=== PATIENT | male | born 1950 | race Caucasian/White ===

== ENCOUNTER 2018-09-04 11:49 | Observation (INO) ==
--- NOTE | 2018-09-04 12:48 | ED ---
HPI General Chief Complaint: Chest Pain Stated Complaint: Cardiac Complaint Time Seen by Provider: 09/04/18 12:27 Source: patient Mode of arrival: ambulatory Limitations: no limitations History of Present Illness HPI narrative: 68 male complains of chest pain. Patient states that he was having episodes of lightheadedness last year. Patient was seen by his human services professional in [place] and had stress test and Holter monitor done which were normal. Patient states that he has intermittent lightheadedness for the past few months. Patient started having substernal sharp pain for the past 3 weeks. Patient states that the pain localized to the substernal area and sharp pain usually last about 3-4 minutes and resolved completely. Patient states that the pain is not associate with exertion. Patient complains of aching pain and sharp pain to left shoulder at the same time with a chest pain. Patient states the left shoulder pain resolved when the chest pain resolved. Patient denies any palpitation nausea diaphoresis. Patient states that he has increasing frequency of the chest pain for the past 2 days. Patient states that he had 3-4 episodes of chest pain yesterday and 3-4 chest pain episodes this morning. Patient denies any coughing congestion fever chills. Patient denies history hypertension, diabetes, hyperlipidemia. Patient is a non- smoker. Patient has history of prostate cancer bladder cancer status post BCG and thermal surgery. complaint: Reports chest pain STEMI Alert: No Onset (ago): day(s) Duration: intermittent Onset: during rest Pain location: Reports substernal Severity: moderate Severity scale (1-10): 5 Quality: Reports sharp Pain radiation: Reports none Relieving factors: nothing Exacerbating factors: nothing Treatments prior to arrival chest pain: Reports none and aspirin Related Data Allergies Allergy/AdvReac Type Severity Reaction Status Date / Time No Known Allergies Allergy Verified 09/04/18 11:55 Review of Systems ROS: all other systems reviewed are negative [facility] Medical History Medical History Bladder cancer (Acute) Blood clot in vein (Acute) Prostate cancer (Acute) Surgical History Surgical History H/O knee surgery (Acute) Social History Social History Smoking Status: Never smoker How Often Do You Have a Drink Containing Alcohol: Monthly or less Recent Travel in [facility] within the Last 8 Weeks: No Recent Out of Country Travel within the Last 8 Weeks: No Immunization History Tetanus Immunization: Unsure Exam Narrative Exam Narrative: GENERAL: Well-nourished, well-developed patient. SKIN: Focused skin assessment warm/dry. HEAD: Normocephalic. EYES: No scleral icterus. No injection or drainage. NECK: Supple, trachea midline. No JVD or lymphadenopathy. CARDIOVASCULAR: Regular rate and rhythm without murmurs, gallops, or rubs. RESPIRATORY: Breath sounds equal bilaterally. No accessory muscle use. GASTROINTESTINAL: Abdomen soft, non-tender, nondistended. MUSCULOSKELETAL: No cyanosis, or edema. BACK: Nontender without obvious deformity. No CVA tenderness. Neurologic exam normal. Course Initial Documented Vital Signs Temperature 98.2 F 09/04/18 11:53 Pulse Rate 83 09/04/18 11:53 Respiratory Rate 20 09/04/18 11:53 Blood Pressure 193/89 H 09/04/18 11:53 Pulse Oximetry 99 09/04/18 11:53 Last Documented Vital Signs Temperature 98.2 F 09/04/18 11:53 Pulse Rate 70 09/04/18 12:41 Respiratory Rate 16 09/04/18 12:10 Blood Pressure 169/89 H 09/04/18 12:10 Pulse Oximetry 98 09/04/18 12:41 Medical Decision Making MDM Narrative Medical decision making narrative: 68-year-old male plans intermittent chest pain. Medical Screen Exam Complete: Yes Emergency Medical Condition: Yes Differential Diagnosis Differential Diagnosis: Differential diagnosis including musculoskeletal, angina , AK, PE, pneumothorax. Lab Data Lab results reviewed: Yes I reviewed the patient's lab results. Result diagrams: 09/04/18 13:30 09/04/18 12:48 Lab Results 09/04/18 09/04/18 09/04/18 Range/Units 12:48 12:48 12:48 WBC (4.0-11.0) th/mm3 RBC (4.50-5.90) mil/mm3 Hgb (13.0-17.0) gm/dL Hct (39.0-51.0) % MCV (80.0-100.0) fL MCH (27.0-34.0) pg MCHC (32.0-36.0) % RDW (11.6-17.2) % Plt Count (150-450) th/mm3 MPV (7.0-11.0) fL Neut % (Auto) (16.0-70.0) % Lymph % (Auto) (9.0-44.0) % Lake % (Auto) (0.0-8.0) % Eos % (Auto) (0.0-4.0) % Baso % (Auto) (0.0-2.0) % Neut # (Auto) (1.8-7.7) th/mm3 Lymph # (Auto) (1.0-4.8) th/mm3 [place] # (Auto) (0.0-0.9) th/mm3 Eos # (Auto) (0.0-0.4) th/mm3 Baso # (Auto) (0.0-0.2) th/mm3 WBC Differential Differential Comment PT 10.1 (9.8-11.6) sec INR 1.0 Ratio APTT 25.7 (23.4-31.7) sec D-Dimer Quant (PE/DVT) 0.65 H (0.00-0.50) mg/L FEU Sodium Cancelled 140 Potassium Cancelled 4.8 Chloride Cancelled 106 Carbon Dioxide Cancelled 27.1 Anion Gap Cancelled 7 BUN Cancelled 20 H Creatinine Cancelled 0.98 Estimated GFR Cancelled 76 L Random Glucose Cancelled 100 Calcium Cancelled 8.5 Calcium Adj for Albumin Cancelled Total Bilirubin Cancelled 0.4 AST Cancelled 40 H ALT Cancelled 21 Alkaline Phosphatase Cancelled 83 Total Creatine Kinase 150 (39-308) U/L CK-MB (CK-2) 2.2 (0.5-3.6) ng/mL Troponin I Less than 0.02 L (0.02-0.05) ng/mL Total Protein Cancelled 7.5 Albumin Cancelled 3.6 09/04/18 Range/Units 13:30 WBC 9.5 (4.0-11.0) th/mm3 RBC 4.97 (4.50-5.90) mil/mm3 Hgb 16.0 (13.0-17.0) gm/dL Hct 46.0 (39.0-51.0) % MCV 92.6 (80.0-100.0) fL MCH 32.1 (27.0-34.0) pg MCHC 34.7 (32.0-36.0) % RDW 13.1 (11.6-17.2) % Plt Count 189 (150-450) th/mm3 MPV 7.8 (7.0-11.0) fL Neut % (Auto) 72.3 H (16.0-70.0) % Lymph % (Auto) 17.6 (9.0-44.0) % [place] % (Auto) 8.0 (0.0-8.0) % Eos % (Auto) 1.8 (0.0-4.0) % Baso % (Auto) 0.3 (0.0-2.0) % Neut # (Auto) 6.9 (1.8-7.7) th/mm3 Lymph # (Auto) 1.7 (1.0-4.8) th/mm3 [place] # (Auto) 0.8 (0.0-0.9) th/mm3 Eos # (Auto) 0.2 (0.0-0.4) th/mm3 Baso # (Auto) 0.0 (0.0-0.2) th/mm3 WBC Differential . Differential Comment Auto diff final PT (9.8-11.6) sec INR Ratio APTT (23.4-31.7) sec D-Dimer Quant (PE/DVT) (0.00-0.50) mg/L FEU Sodium Potassium Chloride Carbon Dioxide Anion Gap BUN Creatinine Estimated GFR Random Glucose Calcium Calcium Adj for Albumin Total Bilirubin AST ALT Alkaline Phosphatase Total Creatine Kinase (39-308) U/L CK-MB (CK-2) (0.5-3.6) ng/mL Troponin I (0.02-0.05) ng/mL Total Protein Albumin Imaging Data Attestation: I personally reviewed and interpreted this imaging study as follows : Radiologist's impression: Chest X-Ray 09/04/18 12:41 CONCLUSION: The lungs are clear. Chest CTA 09/04/18 13:45 CONCLUSION: 1. No evidence of pulmonary embolism 2. No focal or acute pulmonary infiltrates. Discharge Plan Discharge Disposition Patient Disposition: ED Admit(ED Internal Use Only) Discharge Order Discharge Orders: ED Use Only Admit Order (Routine); Ordered 12/24/18 Ordered By: Win Flynn Discharge Details Diagnosis: Chest pain Physicians Team ED Provider: Win Flynn Discharge Instructions Patient Printed Instructions: Chest Pain (ED) Discharge Interventions Interventions: Vital Signs Last Done: 09/04/18 12:10 Status ED Status: Admitted Observation Patient
--- NOTE | 2018-09-04 13:16 | XR ---
EXAM DATE: 09/04/2018 1:14 PM EST AGE/SEX: 68 years / Male INDICATIONS: Chest pain today and several times over past three weeks, some vertigo and shortness of breath CLINICAL DATA: This is the patient's initial encounter. Patient reports that signs and symptoms have been present for 3 weeks and indicates a pain score of 9/10. MEDICAL/SURGICAL HISTORY: . low back pain, chronic None. COMPARISON: No prior exams available for comparison. FINDINGS: A single AP view of the chest demonstrates the lungs to be symmetrically aerated without evidence of mass, infiltrate or effusion. The cardiomediastinal contours are unremarkable. Osseous structures a re intact. CONCLUSION: The lungs are clear. Electronically signed by: Chace Graham MD Board Certified Radiologist 09/04/2018 1:15 PM EST
[2018-09-04 13:31] LABS: Activated Partial Thrombo Time 25.7 sec (23.4-31.7); Prothrombin Time 10.1 sec (9.8-11.6)
[2018-09-04 13:33] LABS: Alanine Aminotransferase 21 U/L (12-78)
[2018-09-04 13:36] LABS: D-Dimer 0.65 mg/L FEU (0.00-0.50)
[2018-09-04 13:38] LABS: Albumin 3.6 g/dL (3.4-5.0); Alkaline Phosphatase 83 U/L (45-117); Anion Gap 7 meq/L (5-15); Aspartate Aminotransferase 40 U/L (15-37); Blood Urea Nitrogen 20 mg/dL (7-18); Calcium 8.5 mg/dL (8.5-10.1); Carbon Dioxide 27.1 meq/L (21.0-32.0); Chloride 106 meq/L (98-107); Creatine Kinase 150 U/L (39-308); Glomerular Filtration Rate 76 mL/min (>89); Glucose,Random 100 mg/dL (74-106); Potassium 4.8 meq/L (3.5-5.1); Sodium 140 meq/L (136-145); Total Protein 7.5 g/dL (6.4-8.2)
[2018-09-04 13:48] LABS: Baso % (Auto) 0.3 % (0.0-2.0); Eos # (Auto) 0.2 th/mm3 (0.0-0.4); Eos % (Auto) 1.8 % (0.0-4.0); Lymph # (Auto) 1.7 th/mm3 (1.0-4.8); Lymph % (Auto) 17.6 % (9.0-44.0); Mean Corpuscular HGB Conc 34.7 % (32.0-36.0); Mean Corpuscular Hemoglobin 32.1 pg (27.0-34.0); Mean Corpuscular Volume 92.6 fL (80.0-100.0); Mean Platelet Volume 7.8 fL (7.0-11.0); Mono # (Auto) 0.8 th/mm3 (0.0-0.9); Neut # (Auto) 6.9 th/mm3 (1.8-7.7); Neut % (Auto) 72.3 % (16.0-70.0); Platelet Count 189 th/mm3 (150-450); Red Blood Count 4.97 mil/mm3 (4.50-5.90); Red Cell Distribution Width 13.1 % (11.6-17.2); White Blood Count 9.5 th/mm3 (4.0-11.0)
[2018-09-04 13:50] LABS: Creatine Kinase MB 2.2 ng/mL (0.5-3.6)
--- NOTE | 2018-09-04 14:36 | CT ---
EXAM DATE: 09/04/2018 2:31 PM EST AGE/SEX: 68 years / Male INDICATIONS: Mid sternal chest pain for several weeks, radiating to left shoulder CLINICAL DATA: This is the patient's initial encounter. Patient reports that signs and symptoms have been present for 2 weeks and indicates a pain score of 2/10. MEDICAL/SURGICAL HISTORY: Carcinoma, bladder. Carcinoma, prostatic. None. RADIATION DOSE: 12.57 CTDI (mGy) COMPARISON: No prior exams available for comparison. TECHNIQUE: Volumetric scanning was performed using a multi-row detector CT scanner during bolus infu teo of 74 ml Omnipaque 350 (iohexol) nonionic water-soluble contrast as a single exam dose. The nichole a was post processed with a variety of visualization algorithms including full volume maximum intensi ty projection and sliding thin slab reformation. Using automated exposure control and adjustment of t he mA and/or kV according to patient size, radiation dose was kept as low as reasonably achievable to obtain optimal diagnostic quality images. DICOM format image data is available electronically for r eview and comparison. FINDINGS: Pulmonary Arteries: No filling defects are seen in the pulmonary arteries out to the subsegmental ve ssels. The left and right pulmonary arteries are normal in diameter. Lung: No infiltrates seen. Effusion: None. Mediastinum: No evidence of mediastinal or hilar adenopathy. Other: The axilla is unremarkable. Multiple hepatic cysts. CONCLUSION: 1. No evidence of pulmonary embolism 2. No focal or acute pulmonary infiltrates. Electronically signed by: Dileep Torres MD Board Certified Radiologist 09/04/2018 2:35 PM EST
[2018-09-04] MEDS ORDERED: Acetaminophen 500 MG Tablet PO PRN (15:45)
[2018-09-04 16:13] LABS: Creatine Kinase 97 U/L (39-308)
--- NOTE | 2018-09-04 16:42 | P.HPCA ---
History of Present Illness Primary Care Physician: PROVIDER NON STAFF Chief Complaint: Chest pain History of Present Illness: 68 year old male with history of GERD, DVTs, bladder cancer, and prostate cancer presents to ER for further evaluation of nonexertional chest pain. Onset 3 weeks, increasing in frequency, noticing only in morning hours. Location substernal, points to area. Describes as a quarter size area. Characterized as sharp. A few seconds after chest pain begins a separate sharp discomfort begins in left shoulder, not radiating. Occasional left fingers become numb during episodes. No associated symptoms of nausea, vomiting, dyspnea, or diaphoresis. No precipitating or relieving factors. Discomfort gradually begins, gradually resolves. Duration varies between 1-5 minutes. Discomfort mild in severity. Last episode this morning upon awakening, reported 3 different episodes while laying in bed. Reports full cardiac workup completed September due to dizziness. Stress testing, echocardiogram, and Holter monitor reported to be unremarkable. No recent illness, fever, chills, or injury. History of left rotator cuff surgery 7 months ago. Drove from [place] 09/01/18, visiting family for the holidays. Plans to return home 09/13/18. Diagnoses with bladder cancer 4.5 years ago, treated with BCG therapy. Diagnoses with prostate cancer 1 year ago. Both cancers identified during stage 0, x2 bladder tumors removed during last few years at stage 1. Follows with oncology every 3 months. Last DVT 2 months ago, treated with Xarelto and now prescribed daily aspirin. Past cardiac testing September 2017 Stress testing, echocardiogram, and Holter monitor reported to be unremarkable. Social history No known coronary disease, hypertension, hyperlipidemia, or diabetes. Lifelong non-smoker. No alcohol or recreational drug use. Family history Noncontributory for early onset cardiovascular disease. - Diagnosis (1) Atypical chest pain (2) GERD (gastroesophageal reflux disease) Review of Systems All other systems reviewed negative except as stated in HPI PMFSH - History History Provided By: Patient - Medical History Medical History: Medical History (Last Updated 09/04/18 @ 16:30 by BRETT Morrow) Bladder cancer DVT (deep venous thrombosis) GERD (gastroesophageal reflux disease) Prostate cancer - Surgical History Surgical History: Surgical History (Last Updated 09/04/18 @ 16:33 by BRETT Morrow) H/O knee surgery H/O rotator cuff surgery - Family History Family History: Family History (Last Updated 09/04/18 @ 16:34 by BRETT Morrow) Father CVA (cerebral vascular accident) DVT (deep venous thrombosis) Mother DVT (deep venous thrombosis) - Social History I have reviewed the patient's Social History: Yes - Tobacco History Second Hand Smoke Exposure: No Tobacco Use In Past 30 Days: No Smoking Status: Never smoker - Alcohol History How Often Do You Have a Drink Containing Alcohol: Monthly or less - Travel History History of Recent Travel: Yes (Drove from [place] to [place] 09/01/18) Recent Travel in the [facility] Within the Last 8 Weeks: No Recent Travel Out of the Country Within the Last 8 Weeks: No - Immunization History Tetanus Immunization: Unsure Medications and Allergies Active Medications: Active Medications Acetaminophen (Tylenol) 500 mg PO Q4H PRN PRN Reason: HEADACHE Nitroglycerin (Nitrostat Sl) 0.4 mg SL Q5M PRN PRN Reason: CHEST PAIN Ondansetron HCl (Zofran Inj) 4 mg IV.PUSH Q6H PRN PRN Reason: NAUSEA Sodium Chloride (Ns Flush) 2 ml IV.FLUSH BID JORDYN Sodium Chloride (Ns Flush) 2 ml IV.FLUSH PRN PRN PRN Reason: FLUSH AFTER USING IV ACCESS Allergies Allergy/AdvReac Type Severity Reaction Status Date / Time No Known Allergies Allergy Verified 09/04/18 11:55 Exam Vital signs: Vital Signs 09/04/18 11:53 09/04/18 12:10 09/04/18 12:41 Temperature 98.2 F Pulse Rate 83 73 70 Respiratory Rate 20 16 Blood Pressure 193/89 H 169/89 H Pulse Oximetry 99 100 98 09/04/18 13:50 09/04/18 15:00 Temperature Pulse Rate 62 64 Respiratory Rate 16 16 Blood Pressure 163/87 H 139/79 Pulse Oximetry 97 98 Intake & Output 09/03/18 09/04/18 09/04/18 18:59 06:59 18:59 Weight 90.718 kg Narrative: GENERAL: Alert WN, WD, NAD, pleasant, male HEAD: NC, AT EYES: Sclera clear, conjunctiva without injection NECK: Supple, no masses, trachea midline CV: RRR, 2/6 systolic murmur, no rub, gallop, or JVD. No carotid bruits. Chest wall nontender to palpation. RESP: Clear lungs throughout bilateral, no crackles, wheeze, rhonchi, symmetrical chest rise, nonlabored, able to speak in full sentences ABD: Soft, NT, ND, no masses, positive bowel tones EXT: Pulses +2x4, no dependent edema MS: Normal tone x4 extremities, nontender, no obvious deformities, full range of motion NEURO: Motor strength 5/5 PSYCH: A+O x3, pleasant affect, appropriate speech, mood, insight and judgment SKIN: Normal turgor, normal texture, no lesions, no rashes, brisk cap refill, even hair distribution Results 09/04/18 13:30 09/04/18 12:48 Cardiac Enzymes 09/04/18 09/04/18 09/04/18 Range/Units 12:48 12:48 15:25 AST Cancelled 40 H CK-MB (CK-2) 2.2 (0.5-3.6) ng/mL Troponin I Less than 0.02 L Less than 0.02 L (0.02-0.05) ng/mL Coagulation 09/04/18 Range/Units 12:48 PT 10.1 (9.8-11.6) sec APTT 25.7 (23.4-31.7) sec CBC 09/04/18 Range/Units 13:30 WBC 9.5 (4.0-11.0) th/mm3 RBC 4.97 (4.50-5.90) mil/mm3 Hgb 16.0 (13.0-17.0) gm/dL Hct 46.0 (39.0-51.0) % Plt Count 189 (150-450) th/mm3 Neut # (Auto) 6.9 (1.8-7.7) th/mm3 Lymph # (Auto) 1.7 (1.0-4.8) th/mm3 [place] # (Auto) 0.8 (0.0-0.9) th/mm3 Eos # (Auto) 0.2 (0.0-0.4) th/mm3 Baso # (Auto) 0.0 (0.0-0.2) th/mm3 Comprehensive Metabolic Panel 09/04/18 09/04/18 Range/Units 12:48 12:48 Sodium Cancelled 140 Potassium Cancelled 4.8 Chloride Cancelled 106 Carbon Dioxide Cancelled 27.1 BUN Cancelled 20 H Creatinine Cancelled 0.98 Calcium Cancelled 8.5 AST Cancelled 40 H ALT Cancelled 21 Alkaline Phosphatase Cancelled 83 Total Protein Cancelled 7.5 Albumin Cancelled 3.6 Intake and Output 09/04/18 09/04/18 09/04/18 06:59 14:59 22:59 Other: Weight 90.718 kg Patient Weight 09/05/18 06:59 Weight 90.718 kg - Imaging and Cardiology Imaging: Impressions Chest X-Ray 09/04/18 12:41 CONCLUSION: The lungs are clear. Chest CTA 09/04/18 13:45 CONCLUSION: 1. No evidence of pulmonary embolism 2. No focal or acute pulmonary infiltrates. EKG interpretations - EKG EKG results cardiology: sinus rhythm (right bundle branch block) Caprini VTE Risk Assessment Caprini VTE Risk Assessment: Moderate/High Risk (score >= 2) Caprini Risk Assessment Model: Point Value = 1 Point Value = 2 Point Value = 3 Point Value = 5 Age 41-60 Minor surgery BMI > 25 kg/m2 Swollen legs Varicose veins or History of unexplained or recurrent spontaneous Oral contraceptives or hormone replacement Sepsis (< 1 month) Serious lung disease, including pneumonia (< 1 month) Abnormal pulmonary function Acute myocardial infarction Congestive heart failure (< 1 month) History of inflammatory bowel disease Medical patient at bed rest Age 61-74 Arthroscopic surgery Major open surgery (> 45 min) Laparoscopic surgery (> 45 min) Malignancy Confined to bed (> 72 hours) Immobilizing plaster cast Central venous access Age >= 75 History of VTE Family history of VTE Factor V Leiden Prothrombin [id number] Lupus anticoagulant Anticardiolipin antibodies Elevated serum homocysteine Heparin-induced thrombocytopenia Other congenital or acquired thrombophilia Stroke (< 1 month) Elective arthroplasty Hip, pelvis, or leg fracture Acute spinal cord injury (< 1 month) Prophylaxis Regimen: Total Risk Factor Score Risk Level Prophylaxis Regimen 0-1 Low Early ambulation 2 Moderate Order ONE of the following: *Sequential Compression Device (SCD) *Heparin 5000 units SQ BID 3-4 Higher Order ONE of the following medications: *Heparin 5000 units SQ TID *Enoxaparin/Lovenox 40 mg SQ daily (WT < 150 kg, CrCl > 30 mL/min) *Enoxaparin/Lovenox 30 mg SQ daily (WT < 150 kg, CrCl > 10-29 mL/min) *Enoxaparin/Lovenox 30 mg SQ BID (WT < 150 kg, CrCl > 30 mL/min) AND/OR *Sequential Compression Device (SCD) 5 or more Highest Order ONE of the following medications: *Heparin 5000 units SQ TID (Preferred with Epidurals) *Enoxaparin/Lovenox 40 mg SQ daily (WT < 150 kg, CrCl > 30 mL/min) *Enoxaparin/Lovenox 30 mg SQ daily (WT < 150 kg, CrCl > 10-29 mL/min) *Enoxaparin/Lovenox 30 mg SQ BID (WT < 150 kg, CrCl > 30 mL/min) AND *Sequential Compression Device (SCD) Assessment and Plan - Assessment (1) Atypical chest pain Code(s): R07.89 - Other chest pain Status: Acute Plan: Admitted chest pain center. Monitor on telemetry overnight. Rule out ACS with 3 sets of EKGs and cardiac enzymes. Will be seen evaluated by Dr. Tremaine Decker in morning. Discussed possible stress testing, this will be determined after evaluation by cardiology. Verbalized understanding and agreeable to plan of care. (2) GERD (gastroesophageal reflux disease) Code(s): K21.9 - Gastro-esophageal reflux disease without esophagitis Status: Chronic Plan: Continue omeprazole. (2) GERD (gastroesophageal reflux disease) Qualifiers: Esophagitis presence: without esophagitis Qualified Code(s): K21.9 - Gastro- esophageal reflux disease without esophagitis
[2018-09-04 18:30] LABS: Troponin I 0.03 ng/mL (0.02-0.05)
[2018-09-05 03:45] VITALS: PULSE 54
[2018-09-05 07:23] VITALS: BP 96/53; RESP 16; TEMP 98; O2SAT 93
[2018-09-05] MEDS ORDERED: Aspirin 325 MG Tablet PO SCH (09:00)
[2018-09-05] MEDS ORDERED: Regadenoson Inj 0.4 MG/5 ML Syringe IV.PUSH ONE (09:55)
--- NOTE | 2018-09-05 10:46 | NM ---
EXAM DATE: 09/05/2018 10:40 AM EST AGE/SEX: 68 years / Male INDICATIONS:Angina. Abnormal Exercise Treadmill Test Substernal chest pain. CLINICAL DATA: This is the patient's initial encounter. Patient reports that signs and symptoms have been present for 1 day and indicates a pain score of 6/10. MEDICAL/SURGICAL HISTORY: Gastroesophageal reflux disease. Carcinoma, bladder. Carcinoma, pro static. . Knee and rotator cuff. COMPARISON: . DOSE: 8.5 mCi Tc 99m Myoview at rest 25.4 mCi [id number] at stress 0.4 mg Lexiscan STRESS SYMPTOMS: Dyspnea, lightheaded and chest pressure. EJECTION FRACTION: 70 % TECHNIQUE: The patient underwent pharmacologic stress with infusion of prescribed dose. Continuous ECG tracing was monitored during stress. Gated SPECT imaging was performed after stress and conventi onal SPECT imaging was performed at rest. The examination was performed on a SPECT/CT scanner, both attenuation and non-corrected datasets were reviewed. FINDINGS: Distribution: The maximum perfused segment at stress is in the anterior wall. Perfusion Study: The pattern of perfusion at stress is within normal limits. Gated Study: There are intact wall motion and wall thickening without hypokinetic or dyskinetic segm ents. The ejection fraction is calculated at 70%. RISK CATEGORY: Low (<1% Annual Motality Rate) CONCLUSION: No areas of ischemia are seen. Electronically signed by: Paul Bazan MD Board Certified Radiologist 09/05/2018 10:45 AM EST
--- NOTE | 2018-09-06 15:04 | ECG ---
Date Performed: 09/04/2018 Time Performed: 15:27:54 PTAGE: 68 years EKG: Sinus rhythm INTRAVENTRICULAR CONDUCTION DELAY ABNORMAL ECG PREVIOUS TRACING : 09/04/2018 12.12 Since previous tracing, no significant change noted DOCTOR: Tremaine Decker Interpretating Date/Time 09/06/2018 15:03:42
--- NOTE | 2018-09-06 15:04 | ECG ---
Date Performed: 09/04/2018 Time Performed: 18:09:53 PTAGE: 68 years EKG: Sinus rhythm INTRAVENTRICULAR CONDUCTION DELAY ABNORMAL ECG INTERPRETATION BASED ON A DEFAULT AGE OF 40 YEARS PREVIOUS TRACING : 09/04/2018 15.27 Since previous tracing, no significant change noted DOCTOR: Tremaine Decker Interpretating Date/Time 09/06/2018 15:03:30
--- NOTE | 2018-09-06 15:04 | ECG ---
Date Performed: 09/04/2018 Time Performed: 12:12:09 PTAGE: 68 years EKG: Sinus rhythm INTRAVENTRICULAR CONDUCTION DELAY ABNORMAL ECG INTERPRETATION BASED ON A DEFAULT AGE OF 40 YEARS NO PREVIOUS TRACING DOCTOR: Tremaine Decker Interpretating Date/Time 09/06/2018 15:03:48
--- NOTE | 2018-09-06 15:07 | TR ---
Date Performed: 09/05/2018 Time Performed: 10:07:53 DOCTOR: Tremaine Decker DRUG LIST: CLINICAL HISTORY: CHEST PAIN REASON FOR TEST: CHEST PAIN REASON FOR ENDING: OBSERVATION: CONCLUSION: COMMENTS: Lexiscan stress test was performed under standard four minute protocol. Radionuclide was injected one minute prior to ending the test. No electrocardiographic abormalities were present t o suggest ischemia. Nuclear imaging and interpretation are pending.
--- NOTE | 2018-09-06 15:07 | TR ---
Date Performed: 09/05/2018 Time Performed: 09:14:31 DOCTOR: Tremaine Decker DRUG LIST: CLINICAL HISTORY: REASON FOR TEST: REASON FOR ENDING: OBSERVATION: CONCLUSION: URIEL PROTOCOL. NO CP. TEST STOPPED SECONDARY TO SOB AND LEG FATIGUE.Maximum OI=997 % Max HR Achieved=89.0% Maximum JG=840/80 Total Exercise Time=8:03 COMMENTS: ST depression present at peak exercise. This is likely due to IVCD. Will get nuclear i maging
== END 2018-09-05 11:50 | disposition home or self-care (01) ==
LOC: NEPE 11:49 → NEDA 11:49 → NEPHCDU 16:44
PROVIDERS: ADMIT Internal Medicine Cardiovascular Disease; ATTEND Internal Medicine Cardiovascular Disease
DX: K21.9 Gastro-esophageal reflux disease without esophagitis; Z85.51 Personal history of malignant neoplasm of bladder; R07.89 Other chest pain; Z86.718 Personal history of other venous thrombosis and embolism; Z85.46 Personal history of malignant neoplasm of prostate; R42 Dizziness and giddiness; Z82.3 Family history of stroke; R94.39 Abnormal result of other cardiovascular function study; Z79.82 Long term (current) use of aspirin; R06.09 Other forms of dyspnea
CPT/HCPCS: 71010; 71045; 71275; 78452; 80053; 82550; 82552; 84484; 85025; 85379; 85610; 85730; 93005; 93017; 99285; A9502; G0378; J2785; Q9967; Q9969